=== PATIENT | female | born 1995 | race Two or more races ===

== ENCOUNTER → 2019-01-17 | Outpatient (CLI) | payer OTHER | LOC: OD 16:46 | PROVIDERS: ATTEND Obstetrics & Gynecology | DX: N92.0 Excessive and frequent menstruation with regular cycle (principal); Z32.01 Encounter for pregnancy test, result positive | CPT/HCPCS: 36415; 84702; 86900; 86901 ==

== ENCOUNTER → 2019-01-30 | Outpatient (CLI) | payer OTHER | LOC: OD 07:42 | PROVIDERS: ATTEND Obstetrics & Gynecology | DX: O20.0 Threatened abortion (principal) | CPT/HCPCS: 36415; 84702 ==

== ENCOUNTER 2020-01-19 12:15 | Inpatient (IN) | payer OTHER ==
[2020-01-26] MEDS ORDERED: RINGERS SOLUTION,LACTATED 1,000 ML IV ONE (21:30)
[2020-01-26 21:31] LABS: ABSOLUTE LYMPHOCYTES (AUTO) 1.1 10^3/uL (0.5-4.7); ABSOLUTE MONOCYTES (AUTO) 0.8 10^3/uL (0.1-1.4); ABSOLUTE NEUT (AUTO) 5.6 10^3/uL (1.7-8.2); BASOPHILS % (AUTO) 0.6 % (0-2); EOSINOPHILS % (AUTO) 0.5 % (0-6); HEMATOCRIT 31.3 % (36.0-47.0); HEMOGLOBIN 11.3 g/dL (12.0-15.5); MEAN CORPUSCULAR HEMOGLOBIN 34.1 pg (27.0-33.4); MEAN CORPUSCULAR HGB CONC 35.9 g/dL (32.0-36.0); MEAN CORPUSCULAR VOLUME 95 fl (80-97); MONOCYTES % (AUTO) 10.2 % (3-13); PLATELET COUNT 153 10^3/uL (150-450); RED BLOOD COUNT 3.31 10^6/uL (3.72-5.28); RED CELL DISTRIBUTION WIDTH 12.8 % (11.5-14.0); SEGMENTED NEUTROPHILS % (AUTO) 73.7 % (42-78); TOTAL CELLS COUNTED % (AUTO) 100 %; WHITE BLOOD COUNT 7.6 10^3/uL (4.0-10.5)
[2020-01-26] MEDS: RINGERS SOLUTION,LACTATED 1,000 ML IV PRN (21:40)
[2020-01-26 21:54] LABS: APPEARANCE,URINE CLEAR; BILIRUBIN,URINE NEGATIVE (NEGATIVE); COLOR,URINE YELLOW; GLUCOSE, URINE NEGATIVE (NEGATIVE); KETONES,URINE NEGATIVE (NEGATIVE); LEUKOCYTE ESTERASE,URINE NEGATIVE (NEGATIVE); NITRITE,URINE NEGATIVE (NEGATIVE); PROTEIN,URINE NEGATIVE (NEGATIVE); URINE SPECIFIC GRAVITY 1.005; UROBILINOGEN,URINE NEGATIVE mg/dL (<2.0)
[2020-01-26] MEDS ORDERED: DINOPROSTONE 10 MG VAGINAL INSERT.SR ONE (22:10)
[2020-01-26 22:14] LABS: URINE AMPHETAMINES SCREEN NEGATIVE; URINE BARBITURATES SCREEN NEGATIVE; URINE BENZODIAZEPINES SCREEN NEGATIVE; URINE COCAINE SCREEN NEGATIVE; URINE MARIJUANA (THC) SCREEN NEGATIVE; URINE METHADONE SCREEN NEGATIVE; URINE PHENCYCLIDINE SCREEN NEGATIVE
[2020-01-26] MEDS ORDERED: DINOPROSTONE 10 MG VAGINAL INSERT.SR PV PRN (22:35)
[2020-01-26] MEDS ORDERED: DINOPROSTONE 10 MG VAGINAL INSERT.SR PV ONE (23:00)
--- NOTE | 2020-01-27 03:29 | Admission Physical ---
Datetime Report Generated by CPN: 01/27/2020 03:29 CURRENT ADMISSION Chief Complaint: Other Indication for Induction: Post Dates Admit Impression : Term, Intrauterine Admit Plan: Admit to Unit; Initiate Labor Induction Protocol ALLERGIES Medication Allergies: No Medication Allergies: No Known Allergies (01/26/2020) Latex: No Latex Allergies OBSTETRICAL HISTORY EDC: 01/14/2020 00:00 : 2 Para: 0 Term: 0 : 0 SAB: 1 IAB: 0 Ectopic: 0 Livin Cesareans: 0 VBACs: 0 Multiple Births: 0 Gestational Diabetes: No Rh Sensitization: No Incompetent Cervix: No JONATAN: No Infertility: No ART Treatment: No Uterine Anomaly: No IUGR: No Hx Previous C/S: No Macrosomia: No Hx Loss/Stillborn: No PIH: No Hx : No Placenta Previa/Abruption: No Depression/PP Depression: No PTL/PROM: No Post Hemorrhage: No SEE RECORDS Alcohol: No Marijuana : No Cocaine: No Other Illicit Drugs: No Cigarettes: Never Smoker. [id number] MEDICAL HISTORY Diabetes: No Blood Transfusion: No Pulmonary Disease (Asthma, TB): No Breast Disease: No Hypertension: No Dental Services Director Surgery: No Heart Disease: No Hosp/Surgery: No Autoimmune Disorder: No Anesthetic Complications: No Kidney Disease: No Abnormal Pap Smear: No Neuro/Epilepsy: No Psychiatric Disorders: No Other Medical Diseases: No Hepatitis/Liver Disease: No Significant Family History: No Varicosities/Phlebitis: No Trauma/Violence : No Thyroid Dysfunction: No INFECTIOUS HISTORY Gonorrhea: No Genital Herpes: No Chlamydia: No Tuberculosis: No Syphilis: No Hepatitis: No HIV/AIDS Exposure: No Rash or Viral Illness: No HPV: No PHYSICAL EXAM General: Normal HEENT: Normal Neurologic: Normal Thyroid: Normal Heart: Normal Lungs: Normal Breast: Deferred Back: Normal Abdomen: Normal Genitourinary Exam: Normal Extremities: Normal DTRs: Normal Pelvic Type: Adequate FETUS A EGA: 41.6 PLANS FOR LABOR AND DELIVERY Labor and Delivery: None Pain Management: Epidural Feeding Preference: Breast Benefit of Breast Feed Discussed: Yes Circumcision: N/A INFORMED CONSENT Signature: with User ID: [email or web address]
[2020-01-27] MEDS: RINGERS SOLUTION,LACTATED 1,000 ML IV PRN ×2 (03:46→22:55)
[2020-01-27] MEDS ORDERED: MISOPROSTOL 0.2 MG TABLET ONE (10:05)
[2020-01-27] MEDS ORDERED: OXYTOCIN/0.9 % SODIUM CHLORIDE 30 UNIT/500 ML RTUINJ ONE (10:05)
[2020-01-27] MEDS ORDERED: LIDOCAINE 1% INJ-PF (10 MG/ML) 30 ML SDV ONE (10:05)
[2020-01-27] MEDS ORDERED: OXYTOCIN 10 UNIT/ML VIAL ONE (10:05)
--- NOTE | 2020-01-27 11:12 | L&D Progress Notes ---
PROGRESS NOTES Datetime Report Generated by CPN: 01/27/2020 11:12 PROGRESS NOTE Impression: Reassuring Heart Rate Procedures: Artificial ROM; Sterile Vag Exam Plan: Continue Present Management; Induction Vital Signs : Reviewed; Within Normal Limits Comment: IOL at 41.6 wks. s/p Cervidil overnight. Pt having contractions, remains comfortable, desires epidural when in active labor. GBS negative. VE 1-2/70/-1. AROM w/ moderate amount of clear amniotic fluid. Position changes and ambulation encouraged. Attending MD is Dr Bermudez today VAGINAL EXAM Contractions: q2 LAST VAGINAL EXAM-NURSING Nursing Exam Dilitation: 1-2 Nursing Exam Effacement: 70 Nursing Exam Station: -1 Nursing Exam Contractions: pt denies feeling cramping or ctx MEMBRANES Membranes: Ruptured Amniotic Fluid Color: Clear FETUS A FHR - Baseline: 145 Monitoring: External US Variability: Moderate 6-25bpm Accelerations: 15X15 Decelerations: None SIGNATURE SIGNATURE: [id number];[id number] Assignment: Era Bermudez MD Signature: with User ID: Christi : with User ID: [email or web address]
[2020-01-27] MEDS ORDERED: OXYTOCIN/0.9 % SODIUM CHLORIDE 30 UNIT/500 ML RTUINJ IV PRN (15:21)
--- NOTE | 2020-01-27 15:26 | L&D Progress Notes ---
PROGRESS NOTES Datetime Report Generated by CPN: 01/27/2020 15:26 PROGRESS NOTE Impression: Reassuring Heart Rate Procedures: Sterile Vag Exam Plan: Continue Present Management; Augmentation Vital Signs : Reviewed; Within Normal Limits Comment: IOL, s/p AROM, pt has been ambulating and sitting on the birthing ball. Remains comfortable. VE, no change, 1-/-1. Will Augment w/ Pitocin. Pt does plan an epidural when she gets uncomfortable. GBS negative. Attending MD is Dr Bermudez VAGINAL EXAM Dilatation: 1-2 Effacement: 70 Station: -1 Contractions: q2-4 LAST VAGINAL EXAM-NURSING Nursing Exam Dilitation: 1-2 Nursing Exam Effacement: 70 Nursing Exam Station: -1 Nursing Exam Contractions: pt denies feeling cramping or ctx MEMBRANES Membranes: Ruptured Amniotic Fluid Color: Clear FETUS A FHR - Baseline: 140 Monitoring: External US Variability: Moderate 6-25bpm Accelerations: 15X15 Decelerations: None SIGNATURE SIGNATURE: [id number] Assignment: Era Bermudez MD Signature: with User ID: Christi : with User ID: [email or web address]
[2020-01-27] MEDS ORDERED: NALBUPHINE HCL INJ 10 MG/1 ML AMPULE INJ ONE (18:45)
[2020-01-27] MEDS ORDERED: PROMETHAZINE HCL INJ 25 MG/1 ML VIAL IV ONE (18:45)
[2020-01-27] MEDS ORDERED: NALBUPHINE HCL INJ 10 MG/1 ML AMPULE ONE (18:50)
[2020-01-27] MEDS ORDERED: PROMETHAZINE HCL INJ 25 MG/1 ML VIAL ONE (18:50)
[2020-01-27 20:12] LABS: ABSOLUTE MONOCYTES (AUTO) 0.9 10^3/uL (0.1-1.4); ABSOLUTE NEUT (AUTO) 8.8 10^3/uL (1.7-8.2); BASOPHILS % (AUTO) 0.4 % (0-2); EOSINOPHILS % (AUTO) 0.2 % (0-6); HEMATOCRIT 30.8 % (36.0-47.0); LYMPHOCYTES % (AUTO) 9.1 % (13-45); MEAN CORPUSCULAR HEMOGLOBIN 33.8 pg (27.0-33.4); MEAN CORPUSCULAR HGB CONC 35.7 g/dL (32.0-36.0); MEAN CORPUSCULAR VOLUME 95 fl (80-97); MONOCYTES % (AUTO) 8.2 % (3-13); PLATELET COUNT 150 10^3/uL (150-450); RED BLOOD COUNT 3.25 10^6/uL (3.72-5.28); RED CELL DISTRIBUTION WIDTH 12.7 % (11.5-14.0); SEGMENTED NEUTROPHILS % (AUTO) 82.1 % (42-78); TOTAL CELLS COUNTED % (AUTO) 100 %; WHITE BLOOD COUNT 10.7 10^3/uL (4.0-10.5)
[2020-01-27 20:37] LABS: ALBUMIN 2.7 g/dL (3.5-5.0); ALKALINE PHOSPHATASE 229 U/L (38-126); ASPARTATE AMINO TRANSFERASE 27 U/L (14-36); BILIRUBIN,DIRECT 0.2 mg/dL (0.0-0.4); BILIRUBIN,TOTAL 0.7 mg/dL (0.2-1.3); BLOOD UREA NITROGEN 7 mg/dL (7-20); CALCIUM 8.5 mg/dL (8.4-10.2); GLUCOSE 83 mg/dL (75-110); TOTAL PROTEIN 5.2 g/dL (6.3-8.2); URIC ACID 4.9 mg/dL (2.5-6.2)
[2020-01-27 20:42] LABS: CARBON DIOXIDE 22 mmol/L (22-30); CHLORIDE 109 mmol/L (98-107)
[2020-01-27 20:59] LABS: ANION GAP 4 (5-19)
[2020-01-27] MEDS ORDERED: PENICILLIN G-K 5 MILLION UNIT VIAL ONE (22:39)
[2020-01-27] MEDS ORDERED: PENICILLIN G POTASSIUM 5,000,000 UNIT in DEXTROSE 5%-WATER 100 ML IV ONE (23:00)
[2020-01-28] MEDS ORDERED: PENICILLIN G-K 5 MILLION UNIT VIAL ONE ×2 (03:20→07:48)
[2020-01-28] MEDS: PENICILLIN G POTASSIUM 2,500,000 UNIT in DEXTROSE 5%-WATER 50 ML IV SCH ×5 (03:24→18:26)
[2020-01-28] MEDS ORDERED: NALBUPHINE HCL INJ 10 MG/1 ML AMPULE INJ ONE (03:37)
[2020-01-28] MEDS ORDERED: PROMETHAZINE HCL INJ 25 MG/1 ML VIAL IV ONE (03:37)
[2020-01-28] MEDS ORDERED: NALBUPHINE HCL INJ 10 MG/1 ML AMPULE ONE (03:49)
[2020-01-28] MEDS ORDERED: PROMETHAZINE HCL INJ 25 MG/1 ML VIAL ONE (03:49)
[2020-01-28] MEDS ORDERED: OXYTOCIN/0.9 % SODIUM CHLORIDE 30 UNIT/500 ML RTUINJ IV PRN ×2 (08:53→20:31)
[2020-01-28] MEDS ORDERED: OXYTOCIN/0.9 % SODIUM CHLORIDE 30 UNIT/500 ML RTUINJ ONE ×2 (08:58→20:42)
--- NOTE | 2020-01-28 09:41 | L&D Progress Notes ---
PROGRESS NOTES Datetime Report Generated by CPN: 01/28/2020 09:41 PROGRESS NOTE Impression: Reassuring Heart Rate Impression Other: IUP @ 42wga IOL day 2 Procedures: Intrauterine Pressure Catheter; Scalp Electrode Plan: Continue Present Management; Induction Informed Consent Obtained: Vaginal Delivery; Section Delivery; Induction of Labor; Risks, Benefits and Alternatives Discussed Vital Signs : Reviewed Vital Signs Comments: normal-mild range Comment: S: pt comfortable after pitocin break, new IV placed started, eager for vaginal delivery,no concerns at this time, agreeable to IUPC and FSE placement O: mild range bps, monitors had been off when I came onboard, IV and induction re-started at this time, Cat I tracing, cervix as stated A: IUP @ 42w IOL day 2 AROM 22hrs ago with minimal change overnight-stable IUPC and FSE placed without difficulty pt tolerated well P: re-start IOL at this time will increase pitocin q15min, titrate to adequate MVUs, re-assess in 4hrs or earlier prn. Dr. Garcia is the OB on today and aware of pt and poc VAGINAL EXAM Dilatation: 3 Effacement: 90 Station: -2 Contractions: rare LAST VAGINAL EXAM-NURSING Nursing Exam Dilitation: 2.0 Nursing Exam Effacement: 80 Nursing Exam Station: -1 Nursing Exam Contractions: KODY malfunctioning MEMBRANES Membranes: Ruptured Amniotic Fluid Color: Bloody FETUS A FHR - Baseline: 130 Monitoring: External US Variability: Moderate 6-25bpm Accelerations: 15X15 Decelerations: None SIGNATURE SIGNATURE: [id number];[id number] Assignment: Brayden Garcia MD Signature: with User ID: [email or web address] : with User ID: [email or web address]
[2020-01-28] MEDS: RINGERS SOLUTION,LACTATED 1,000 ML IV PRN ×2 (10:50→12:41)
[2020-01-28] MEDS ORDERED: FENTANYL/BUPIVACAINE/NS/PF 300 MCG/150 ML RTUINJ EPI ONE (12:23)
[2020-01-28] MEDS ORDERED: ROPIVACAINE HCL 0.2% INJ/PF (2 MG/ML) 20 ML SDV ONE (12:23)
[2020-01-28] MEDS ORDERED: EPHEDRINE SULFATE INJ 50 MG/1 ML AMPULE ONE (12:23)
[2020-01-28] MEDS ORDERED: DEXTROSE 5%-LACTATED RINGERS 1,000 ML IV PRN (14:53)
[2020-01-28] MEDS ORDERED: DEXTROSE 5%-WATER 250 ML IV ONE (14:53)
[2020-01-28] MEDS ORDERED: CEFAZOLIN 2 GM/D5W RTU 2 GM/50 ML RTUPB IV ONE (20:14)
[2020-01-28] MEDS ORDERED: CITRIC ACID/SODIUM CITRATE ORAL SOLN 15 ML UDCUP ONE (20:14)
--- NOTE | 2020-01-28 20:29 | L&D Progress Notes ---
PROGRESS NOTES Datetime Report Generated by CPN: 01/28/2020 20:29 PROGRESS NOTE Impression: Arrest of Dilatation/Descent; Rupture of Membranes Impression Other: IUP @ 42wga IOL day 2 Procedures: Artificial ROM; Intrauterine Pressure Catheter; Scalp Electrode; Epidural Placement Plan: Deliver- Section Informed Consent Obtained: Section Delivery Vital Signs : Reviewed Vital Signs Comments: normal-mild range Comment: The pt is not progressing in labor. She has been ruptured greater than 24 hours. The head is not descending well in the pelvis. We will go ahead with delivery by c section. The pt and family agree with this plan. VAGINAL EXAM Dilatation: 3 Effacement: 90 Station: -2 Contractions: rare LAST VAGINAL EXAM-NURSING Nursing Exam Dilitation: 5.0 Nursing Exam Effacement: 100 Nursing Exam Station: -1 Nursing Exam Contractions: MVUs- 80 MEMBRANES Membranes: Ruptured Amniotic Fluid Color: Bloody FETUS A FHR - Baseline: 130 Monitoring: External US Variability: Moderate 6-25bpm Accelerations: 15X15 Decelerations: None SIGNATURE SIGNATURE: [id number];[id number] Assignment: Brayden Garcia MD Signature: with User ID: Alexandria : with User ID: Alexandria
[2020-01-28] MEDS ORDERED: MEASLES,MUMPS&RUBELLA VACC/PF 0.5 ML VIAL SUBCUT PRN (20:31)
[2020-01-28] MEDS ORDERED: SIMETHICONE 80 MG TAB.CHEW PO PRN (20:31)
[2020-01-28] MEDS ORDERED: DIPH/PERTUSS(ACELL)/TETANUS VAC/PF 0.5 ML SYR (>=10YO) IM PRN (20:31)
[2020-01-28] MEDS ORDERED: HYDROMORPHONE HCL INJ/PF 2 MG/ML AMPULE IV PRN (20:31)
[2020-01-28] MEDS ORDERED: OXYCODONE-ACETAMINOPHEN 5-325 MG TABLET PO PRN ×2 (20:31)
[2020-01-28] MEDS ORDERED: ACETAMINOPHEN 1,000 MG/100 ML RTUPB IV PRN (20:31)
[2020-01-28] MEDS ORDERED: PROMETHAZINE HCL INJ 25 MG/1 ML VIAL IV PRN (20:31)
[2020-01-28] MEDS ORDERED: RINGERS SOLUTION,LACTATED 1,000 ML IV PRN (20:31)
[2020-01-28] MEDS ORDERED: ACETAMINOPHEN 325 MG TABLET PO PRN (20:31)
[2020-01-28] MEDS ORDERED: FENTANYL CITRATE INJ/PF 100 MCG/2 ML AMPUL ONE ×3 (20:42→21:35)
[2020-01-28] MEDS ORDERED: OXYTOCIN 10 UNIT/ML VIAL ONE ×2 (20:42→21:20)
[2020-01-28] MEDS ORDERED: LIDOCAINE 2% INJ-PF (20 MG/ML) 10 ML AMPUL ONE ×2 (20:42→21:43)
[2020-01-28] MEDS ORDERED: ACETAMINOPHEN 1,000 MG/100 ML RTUPB IV ONE (20:43)
[2020-01-28] MEDS ORDERED: ONDANSETRON HCL INJ/PF 4 MG/2 ML SDV ONE (20:43)
--- NOTE | 2020-01-28 22:02 | Operative Report ---
Operative Report DATE OF SURGERY: 01/28/20 PREOPERATIVE DIAGNOSIS: Arrest of dilatation with prolonged rupture membranes POSTOPERATIVE DIAGNOSIS: Same OPERATION: Primary via low transverse uterine incision SURGEON: TONIO TY ANESTHESIA: Epidural TISSUE REMOVED OR ALTERED: Placenta COMPLICATIONS: Uterine atony ESTIMATED BLOOD LOSS: 800 cc INTRAOPERATIVE FINDINGS: Viable crying at delivery. Normal uterus tubes and ovaries PROCEDURE: Patient was taken to the OR and placed in supine position after her spinal anesthesia. She is prepared and draped in sterile fashion. Lopez was placed for drainage of the bladder. Low transverse incision was made and carried down the level of the fascia. The fascial incision was made with knife and extended bilaterally with curved [place] scissors. The fascia was off the rectus muscles using sharp and blunt dissection. The rectus muscles are in the midline. The peritoneum was entered without incident. Bladder blade was placed in uterine segment was identified. The patient's tissue looked very edematous at this point. A low transverse incision was made creating a bladder flap. Bladder blade was placed low transverse uterine incision was made with the knife and extended with fingertips. The baby was delivered with some fundal pressure. Mouth and nose were suctioned free. The cord is doubly clamped and cut. Baby is passed off to the organic extractions technician in attendance. The placenta was manually extracted with trailing membranes. The uterus was externalized wrapped in a moist lap sponge. Uterine contents wiped free. A bleeding vessel at the right side of the incision was clamped. The bleeding vessel was tied off with 2 interrupted 0 chromic sutures. Uterus was closed with a running locking layer of 0 chromic suture using the second layer to imbricate the first completing a double layer closure of the uterus. The serosa was closed with a running 2-0 chromic stitch. During the closure of the uterus the uterus was not ana well and Pitocin was injected directly into the uterine myometrium. There was a small hematoma forming at the right side of the incision and an [place] suture was placed above and below the hematoma site which seemed to control the bleeding well. The suture was placed was a 0 chromic, The pelvis was irrigated and suctioned free of fluid the uterus was replaced in the abdomen. The abdominal wall peritoneum was closed with running 2-0 chromic stitch. Fascia was closed with a running 0 Vicryl in 2 segments. Rosario's layer was brought together with 0 plain gut stitch and the skin was closed with running subcuticular 4-0 undyed Vicryl stitch. The wound was dressed mother and baby did well. We will check a CBC in the PACU because of the blood loss during the case.
[2020-01-28 22:33] LABS: HEMATOCRIT 26.6 % (36.0-47.0); MEAN CORPUSCULAR HEMOGLOBIN 32.8 pg (27.0-33.4); MEAN CORPUSCULAR VOLUME 96 fl (80-97); PLATELET COUNT 132 10^3/uL (150-450); RED BLOOD COUNT 2.76 10^6/uL (3.72-5.28); RED CELL DISTRIBUTION WIDTH 12.7 % (11.5-14.0); WHITE BLOOD COUNT 15.3 10^3/uL (4.0-10.5)
[2020-01-28 22:40] LABS: INTERNATIONAL RATION (INR) 1.09; PROTHROMBIN TIME 14.3 SEC (11.4-15.4)
[2020-01-28 22:41] LABS: PARTIAL THROMBOPLASTIN TIME 35.9 SEC (23.5-35.8)
[2020-01-28] MEDS ORDERED: MISOPROSTOL 0.2 MG TABLET ONE (22:51)
[2020-01-28] MEDS ORDERED: METHYLERGONOVINE MALEATE INJ/PF 0.2 MG/1 ML AMPULE ONE ×2 (23:42→23:48)
[2020-01-28] MEDS ORDERED: NORMAL SALINE 250 ML IV PRN ×2 (23:50)
[2020-01-28] MEDS ORDERED: MORPHINE SULFATE 10 MG/ML INJ ONE (23:54)
[2020-01-29] MEDS ORDERED: CARBOPROST TROMETHAMINE INJ 250 MCG/1 ML AMPULE ONE (00:23)
[2020-01-29] MEDS ORDERED: METHYLERGONOVINE MALEATE INJ/PF 0.2 MG/1 ML AMPULE IM ONE (00:30)
[2020-01-29] MEDS ORDERED: CARBOPROST TROMETHAMINE INJ 250 MCG/1 ML AMPULE IM ONE (00:35)
[2020-01-29] MEDS ORDERED: LOPERAMIDE HCL 2 MG CAPSULE ONE (01:38)
--- NOTE | 2020-01-29 01:39 | Birth Certificate Data ---
Cert Data Datetime Report Generated by [employer]: 01/29/2020 01:38 CERTIFICATE DATA 47a. Care: Yes (01/26/2020 17:28:Rebekah Wise RN) 47b. Date of First Visit: 07/01/2019 00:00 (01/26/2020 17:28:Rebekah Wise RN) 47c. Date of Last Visit: 01/16/2020 00:00 (01/26/2020 17:28:Rebekah Wise RN) 47d. Number of Visits: 13 (01/26/2020 17:28:Rebekah Wise RN) 48a. Number of Prev Live Births: 0 (01/26/2020 17:28:Rebekah Wise RN) 48b. Now Livin (01/26/2020 17:28:Rebekah Wise RN) 48c. Live Births Now : 0 (01/26/2020 17:28:QS system process) 48e. Losses: 1 (01/26/2020 17:28:Rebekah Wise RN) 48f. Date of Last Preg Loss: 01/19/2019 00:00 (01/26/2020 17:28:Rebekah Wise RN) RISK FACTORS IN THIS 49a. Diabetes: No (01/26/2020 17:28:Ramesh White RN) 49b. Hypertension: No (01/26/2020 17:28:Ramesh White RN) 49c. Previous Births: 0 (01/26/2020 17:28:Ramesh White RN) 49d. Stillborns: No (01/26/2020 17:28:Ramesh White RN) 49d. IUGR: No (01/26/2020 17:28:Ramesh White RN) 49e. Infertility Treatment: No (01/26/2020 17:28:Ramesh White RN) 49f. Previous Cesareans: 0 (01/26/2020 17:28:Ramesh White RN) Mother's Height 50b. Height Inches: 63 (01/27/2020 10:10:QS system process) Mother's Weight 51a. Pre- Weight (lbs): 128 (01/26/2020 17:28:Rebekah Wise RN) 51b. Weight at Delivery (lbs): 176 (01/27/2020 10:10:QS system process) 52. Dt Last Normal Menses Began: 04/09/2019 00:00 (01/26/2020 17:28:Rebekah Wise RN) Infections Present/Treated 53a. Gonorrhea: No (01/26/2020 17:28:Ramesh White RN) Results this Hospital Visit : Negative (01/26/2020 17:28:Rebekah Wise RN) 53b. Syphilis: No (01/26/2020 17:28:Ramesh White RN) Results this Hospital Visit: NONREACTIVE (01/26/2020 21:21:QS system process) 53c. Chlamydia: No (01/26/2020 17:28:Ramesh White RN) Results this Hospital Visit: Negative (01/26/2020 17:28:Rebekah Wise RN) 53d. Hepatitis B: No (01/26/2020 17:28:Ramesh White RN) Results this Hospital Visit: Negative (01/26/2020 17:28:Rebekah Wise RN) 53h. Mother Tested for HBsAG: Yes (01/26/2020 17:28:Rebekah Wise RN) 53i. Date Tested: 07/01/2019 00:00 (01/26/2020 17:28:Rebekah Wise RN) 53j. Test Result: Negative (01/26/2020 17:28:Rebekah Wise RN) Obstetric Procedures 54a, b, c. Obstetric Procedures: Ultrasound (01/26/2020 17:28:Ramesh White RN) Onset of Labor 56a. PROM >12 Hrs: 34.13 (01/26/2020 17:28:QS system process) 57a. Induction of Labor: Induction (01/26/2020 17:28:Mallory Argueta RN) 57a. Induction of Labor: Cervidil (01/26/2020 22:30:Ramesh White RN) 57c. Non-Vertex Presentation A: Vertex (01/26/2020 17:28:Mallory Argueta RN) 57d. Steroids - Lung Mat: None (01/26/2020 17:28:Rebekah Wise RN) 57d. Steroids - Lung Mat: Not Applicable (01/26/2020 17:28:Rebekah Wise RN) 57e. Antibiotics During Labor: 01/28/2020 12:35 (01/26/2020 17:28:Mallory Argueta RN) 57f. Mat Ch[place] or Temp >100.4: 99.1 (01/26/2020 17:28:Lyric Ward RN) 57g. Moderate/Heavy Meconium: Clear (01/27/2020 11:05:Rebekah Wise RN) 57h. Intolerance of Labor: Arrest of Descent (01/26/2020 17:28:Mallory Argueta RN) : N/A (01/26/2020 17:28:Mallory Argueta RN) 57i. Epidural/Spinal Anesthesia: Epidural (01/26/2020 17:28:Mallory Argueta RN) Method of Delivery 58a. Forceps - Unsuccessful A: N/A (01/26/2020 17:28:Mallory Argueta RN) 58b. Vacuum - Unsuccessful A: N/A (01/26/2020 17:28:Mallory Argueta RN) 58c. Presentation at 58c. Presentation at - A : Vertex (01/26/2020 17:28:Mallory Argueta RN) 58c. Presentation at - A : N/A (01/26/2020 17:28:Mallory Argueta RN) 58c. Presentation at - A : Cephalic (01/26/2020 17:28:Mallory Argueta RN) Final Route and Method of Del 58d. Baby A Route/Delivery: (01/26/2020 17:28:Mallory Argueta RN) 58e. Trial of Labor Attempted: No (01/26/2020 17:28:Rebekah Wise RN) 58e. Trial of Labor Attempted A: N/A (01/26/2020 17:28:Rebekah Vining, RN) 58e. Trial of Labor Attempted B: N/A (01/26/2020 17:28:Rebekah Wise, RN) Maternal Morbidity 59b. 3rd or 4th Degree Lacs: N/A (01/26/2020 17:28:Mallorymary Argueta RN) Birthweight Baby A: 4740 (01/26/2020 17:28:Sweetie Yury RN) 60a. Pounds : 10 (01/26/2020 17:28:QS system process) 60b. Ounces: 7 (01/26/2020 17:28:QS system process) 61. GA at Delivery Baby A: 42.0 (01/26/2020 17:28:Mallory Argueta RN) : Post Term- >= 42 Weeks (01/26/2020 17:28:QS system process) 62a. 5 Minute Baby A: 9 (01/26/2020 17:28:QS system process)
--- NOTE | 2020-01-29 01:40 | Delivery Summary ---
Del Sum A-C Datetime Report Generated by CPN: 01/29/2020 01:39 DELIVERY PERSONNEL DELIVERY PERSONNEL: [id number] Delivery Doctor:: Brayden Garcia MD Labor and Delivery Nurse:: Mallory Argueta RN Nursery Nurse:: Sweetie Cotton RN Associate Broker/CYTOGENETICIST: Daria Nuñez, Associate Broker/CYTOGENETICIST: Grace Walton CST Additional Personnel: : Nery Mitchell RELAY SHOP TESTER MATERNAL INFORMATION Delivery Anesthesia: Epidural Medications After Delivery: Pitocin 30 Units in 500ml NS/D5W; Methergine 0.2mg IM; Cytotec 1000mcg Per Rectum/Vagina; Other-Please Comment Meds After Delivery Comment: hemabate 250mg IM Delivery QBL: 1766 Maternal Complications: Hemorrhage LABOR SUMMARY EDC: 01/14/2020 00:00 No. Babies in Womb: 1 Attempted: No Labor Anesthesia: Epidural LABOR INFORMATION Reason for Induction: Post Dates Cervical Ripening Agents: Cervidil Oxytocin: Induction Group B Beta Strep: negative Antibiotics # of Doses: 4 Antibiotics Time of Last Dose: 01/28/2020 12:35 Name of Antibiotic Given: penicillin G Steroids Given: None Reason Steroids Not Administered: Not Applicable MEMBRANES Membranes Rupture Method: Artificial Rupture of Membranes: 01/27/2020 11:05 Length of Rupture (hr): 34.13 Amniotic Fluid Color: Clear Amniotic Fluid Amount: Moderate Amniotic Fluid Odor: Normal STAGES OF LABOR Stage 3 hr: 0 Stage 3 min: 1 VAGINAL DELIVERY Laceration Extension #1: N/A Laceration Repair: Not Applicable Sponge Count Correct: N/A CSECTION DELIVERY Primary Indication: Arrest of Descent Secondary Indication: N/A CSection Urgency: Non-Scheduled CSection Incidence: Primary Labor: Labor Elective: Nonelective CSection Incision: Lower Uterine Transverse BABY A INFORMATION Infant Delivery Date/Time: 01/28/2020 21:13 Method of Delivery: Nurse Controlled Delivery: No Born in Route : No : N/A Forceps: N/A Vacuum Extraction: N/A Shoulder Dystocia : No PRESENTATION/POSITION BABY A Presentation: Cephalic Cephalic Presentation: Vertex Breech Presentation: N/A PLACENTA INFORMATION BABY A Placenta Delivery Time : 01/28/2020 21:14 Placenta Method of Delivery: Manual Removal Placenta Status: Delivered SCORES BABY A Heart Rate 1 min: >100 bpm Resp Effort 1 min: Good Cry Reflex Irritability 1 min: Cough or Sneeze or Pulls Away Muscle Tone 1 min: Active Motion Color 1 min: Blue/Pale Resuscitation Effort 1 min: Tactile Stimulation SCORE 1 MIN: 8 Heart Rate 5 min: >100 bpm Resp Effort 5 min: Good Cry Reflex Irritability 5 min: Cough or Sneeze or Pulls Away Muscle Tone 5 min: Active Motion Color 5 min: Body [place], Extremities Blue Resuscitation Effort 5 min: N/A SCORE 5 MIN: 9 INFORMATION BABY A Gestational Age at Delivery: 42.0 Gestational Status: Post Term- >= 42 Weeks Infant Outcome : Liveborn Condition : Stable Sex: Female IDENTIFICATION BABY A Verification Date/Time: 01/28/2020 22:10 ID Band Number: [id number] Mother's Name Verified: Yes Infant RN Verifying Infant: Cristóbal Argueta, RN and L. Cotton, RN WEIGHT/LENGTH BABY A Infant Birthweight (gm): 4740 Infant Weight (lb): 10 Infant Weight (oz): 7 Length (in): 20.50 Length (cm): 52.07 CORD INFORMATION BABY A No. Cord Vessels: 3 Nuchal Cord : Around Neck x1, Loose Cord Blood Taken: Yes-For Eval (Mom's Blood Type - or O+) Infant Suction: Mouth ASSESSMENT BABY A Infant Complications: None Physical Findings at Delivery: Other Physical Findings- Other: see initial nursery assessment Respirations: Appears Normal Skin to Skin: Yes Infant Care By: Prasanna Cotton RN Transferred To: [facility] BABY B INFORMATION : N/A
[2020-01-29] MEDS ORDERED: LOPERAMIDE HCL 2 MG CAPSULE PO ONE (01:50)
--- NOTE | 2020-01-29 04:04 | L&D Progress Notes ---
PROGRESS NOTES Datetime Report Generated by CPN: 01/29/2020 04:04 PROGRESS NOTE Impression: Arrest of Dilatation/Descent; Rupture of Membranes Impression Other: IUP @ 42wga IOL day 2 Procedures: Artificial ROM; Intrauterine Pressure Catheter; Scalp Electrode; Epidural Placement Plan: Deliver- Section Informed Consent Obtained: Section Delivery Vital Signs : Reviewed Vital Signs Comments: normal-mild range Comment: Due to the QBL with the uterine atony and c section we are currently transfusing blood. Pulse is in 70s, blood pressure 130/70. Will repeat the cbc after transfusion. VAGINAL EXAM Dilatation: 3 Effacement: 90 Station: -2 Contractions: rare LAST VAGINAL EXAM-NURSING Nursing Exam Dilitation: 5.0 Nursing Exam Effacement: 100 Nursing Exam Station: -1 Nursing Exam Contractions: MVUs- 80 MEMBRANES Membranes: Ruptured Amniotic Fluid Color: Bloody FETUS A FHR - Baseline: 130 Monitoring: External US Variability: Moderate 6-25bpm Accelerations: 15X15 Decelerations: None SIGNATURE SIGNATURE: [id number];[id number];15,[id number];29,[id number] Assignment: Brayden Garcia MD Signature: with User ID: Alexandria : with User ID: Alexandria
[2020-01-29] MEDS ORDERED: CEFAZOLIN 1 GM/D5W RTU 1 GM/50 ML RTUPB IV SCH (06:00)
[2020-01-29 06:36] LABS: HEMATOCRIT 29.9 % (36.0-47.0); HEMOGLOBIN 10.5 g/dL (12.0-15.5); MEAN CORPUSCULAR HEMOGLOBIN 31.5 pg (27.0-33.4); MEAN CORPUSCULAR HGB CONC 35.2 g/dL (32.0-36.0); PLATELET COUNT 112 10^3/uL (150-450); RED BLOOD COUNT 3.33 10^6/uL (3.72-5.28); RED CELL DISTRIBUTION WIDTH 15.3 % (11.5-14.0)
[2020-01-29 06:39] LABS: MEAN CORPUSCULAR VOLUME 90 fl (80-97)
[2020-01-29] MEDS: KETOROLAC TROMETHAMINE INJ/PF 30 MG/1 ML SDV IV SCH ×3 (08:42→15:00)
[2020-01-29] MEDS: PENICILLIN G POTASSIUM 2,500,000 UNIT in DEXTROSE 5%-WATER 50 ML IV SCH (10:20)
[2020-01-29] MEDS: PRENATAL VITAMIN W DHA CAPSULE PO SCH (10:34)
[2020-01-29] MEDS: DOCUSATE SODIUM 100 MG CAPSULE PO SCH ×2 (10:34→18:20)
--- NOTE | 2020-01-29 10:37 | PDOC PROGRESS REPORT ---
Subjective-OB Progress Note for:: 01/29/20 Subjective: reports bleeding slowing, pain controlled with current meds. denies needs Physical Exam (OB) Vital Signs: Temp Pulse Resp BP Pulse Ox 99.2 F 84 17 122/71 100 01/29/20 08:55 01/29/20 08:55 01/29/20 08:55 01/29/20 08:55 01/29/20 08:55 Intake & Output 01/28/20 01/29/20 01/30/20 06:59 06:59 06:59 Intake Total 1999 831 Balance 1999 831 - Dressing Removed: No Incision: Well Approximated - Maternal Morbidity 59. Maternal Morbidity (serious complications experinced by the mother associated with labor and delivery: Maternal transfusion - Abdomen Description: Tender Fundal Description: Firm, Midline Fundal Height: 1/u - 2/u - firm - Abdominal Distension: No distension - Extremities Lower extremities: Kati's sign - neg Calf: Normal, Nontender Objective-Diagnostic Laboratory: 01/29/20 06:19 01/27/20 19:55 01/26/20 01/28/20 01/29/20 21:21 22:20 06:19 WBC 15.3 H 15.0 H RBC 2.76 L 3.33 L Hgb 9.0 L 10.5 L Hct 26.6 L 29.9 L MCV 96 90 D MCH 32.8 31.5 MCHC 34.0 35.2 RDW 12.7 15.3 H Plt Count 132 L 112 L Blood Type O POSITIVE Antibody Screen NEGATIVE Assessment and Plan(PN) - Time Spent with Patient Time with patient: Less than 15 minutes - Disposition Anticipated Discharge Disposition: Home, Self Care Anticipated Discharge Timeframe: within 48 hours
[2020-01-30] MEDS: IBUPROFEN 800 MG TABLET PO SCH ×5 (00:03→23:59)
[2020-01-30 06:32] LABS: HEMATOCRIT 24.9 % (36.0-47.0); HEMOGLOBIN 8.6 g/dL (12.0-15.5); MEAN CORPUSCULAR HEMOGLOBIN 31.3 pg (27.0-33.4); MEAN CORPUSCULAR HGB CONC 34.6 g/dL (32.0-36.0); MEAN CORPUSCULAR VOLUME 90 fl (80-97); PLATELET COUNT 124 10^3/uL (150-450); RED BLOOD COUNT 2.75 10^6/uL (3.72-5.28); RED CELL DISTRIBUTION WIDTH 15.8 % (11.5-14.0); WHITE BLOOD COUNT 12.5 10^3/uL (4.0-10.5)
[2020-01-30] MEDS: DOCUSATE SODIUM 100 MG CAPSULE PO SCH ×2 (09:50→17:22)
[2020-01-30] MEDS: PRENATAL VITAMIN W DHA CAPSULE PO SCH (09:50)
[2020-01-30] MEDS ORDERED: IRON SUCROSE COMPLEX INJ/PF 100 MG/5 ML SDV IV ONE (11:51)
--- NOTE | 2020-01-30 11:55 | PDOC PROGRESS REPORT ---
Subjective-OB Progress Note for:: 01/30/20 Subjective: Pt doing well, no concerns. She is on reg diet, voiding w/o difficulty and passing gas. Baby will be going home tomorrow. Physical Exam (OB) Vital Signs: Temp Pulse Resp BP Pulse Ox 98.4 F 105 H 18 126/82 H 98 01/30/20 10:00 01/29/20 23:30 01/29/20 23:30 01/29/20 23:30 01/29/20 23:30 Intake & Output 01/29/20 01/30/20 01/31/20 06:59 06:59 06:59 Intake Total 831 140 Output Total 700 Balance 831 -560 - Dressing Removed: Yes - opsite Incision: Dressing - Maternal Morbidity 59. Maternal Morbidity (serious complications experinced by the mother associa andrey with labor and delivery: Maternal transfusion - Lochia Lochia Amount: Scant < 10 ml Lochia Color: Rubra/Red - Abdomen Description: Soft, Round Hernia Present: No Fundal Description: Firm, Midline Fundal Height: u/u - u/2 Objective-Diagnostic Laboratory: 01/30/20 06:19 01/27/20 19:55 01/30/20 06:19 WBC 12.5 H RBC 2.75 L Hgb 8.6 L Hct 24.9 L MCV 90 MCH 31.3 MCHC 34.6 RDW 15.8 H Plt Count 124 L Assessment and Plan(PN) - Assessment and Plan (1) Acute blood loss anemia Is this a current diagnosis for this admission?: Yes (2) hemorrhage Qualifiers: hemorrhage type: third-stage Qualified Code(s): O72.0 - Third- stage hemorrhage Is this a current diagnosis for this admission?: Yes (3) Blood transfusion during current hospitalisation Is this a current diagnosis for this admission?: Yes (4) Encounter for induction of labor Is this a current diagnosis for this admission?: Yes (5) Macrosomia Is this a current diagnosis for this admission?: Yes (6) Post term at 42 weeks gestation Is this a current diagnosis for this admission?: Yes (7) S/P primary low transverse Is this a current diagnosis for this admission?: Yes - Time Spent with Patient Time with patient: Less than 15 minutes Medications reviewed and adjusted accordingly: Yes - Disposition Anticipated Discharge Disposition: Home, Self Care Anticipated Discharge Timeframe: within 24 hours
[2020-01-31] MEDS: IBUPROFEN 800 MG TABLET PO SCH ×4 (05:38→23:19)
--- NOTE | 2020-01-31 09:45 | PDOC DISCHARGE SUMMARY ---
Impression - Admit/DC Date/PCP Admission Date/Primary Care Provider: 01/26/20 20:39 DELVIN SCHROEDER MD Discharge Date: 01/31/20 - Discharge Diagnosis (1) Acute blood loss anemia Is this a current diagnosis for this admission?: Yes (2) hemorrhage Is this a current diagnosis for this admission?: Yes (3) Blood transfusion during current hospitalisation Is this a current diagnosis for this admission?: Yes (4) Encounter for induction of labor Is this a current diagnosis for this admission?: Yes (5) Macrosomia Is this a current diagnosis for this admission?: Yes (6) Post term at 42 weeks gestation Is this a current diagnosis for this admission?: Yes (7) S/P primary low transverse Is this a current diagnosis for this admission?: Yes - Additional Information Resuscitation Status: Full Code Discharge Diet: Regular Discharge Activity: Balance Activity w/Rest, No Driving, No Lifting Over 10 Pounds, No Lifting/Push/Pulling, Pelvic Rest, No tub bath Referrals: DELVIN SCHROEDER MD [Primary Care Provider] - Home Medications: Ferrous Gluconate [Iron] 256 mg PO DAILY 01/26/20 Vitamin [-U Multiple Vitamin Capsule] 1 cap PO DAILY 01/26/20 HPI Gestational Age: 42.0 Reason(s) for Admission: Induction of Labor, Ceasarean Section-Primary Procedures: NST Intrapartum Procedure(s): : Low Cervical, Transverse Complication(s) Note: PPH Hospital Course 59. Maternal Morbidity (serious complications experinced by the mother associated with labor and delivery: Maternal transfusion Results Laboratory Results: WBC 12.5 10^3/uL (4.0-10.5) H 01/30/20 06:19 RBC 2.75 10^6/uL (3.72-5.28) L 01/30/20 06:19 Hgb 8.6 g/dL (12.0-15.5) L 01/30/20 06:19 Hct 24.9 % (36.0-47.0) L 01/30/20 06:19 MCV 90 fl (80-97) 01/30/20 06:19 MCH 31.3 pg (27.0-33.4) 01/30/20 06:19 MCHC 34.6 g/dL (32.0-36.0) 01/30/20 06:19 RDW 15.8 % (11.5-14.0) H 01/30/20 06:19 Plt Count 124 10^3/uL (150-450) L 01/30/20 06:19 Lymph % (Auto) 9.1 % (13-45) L 01/27/20 19:55 Wheeler % (Auto) 8.2 % (3-13) 01/27/20 19:55 Eos % (Auto) 0.2 % (0-6) 01/27/20 19:55 Baso % (Auto) 0.4 % (0-2) 01/27/20 19:55 Absolute Neuts (auto) 8.8 10^3/uL (1.7-8.2) H 01/27/20 19:55 Absolute Lymphs (auto) 1.0 10^3/uL (0.5-4.7) 01/27/20 19:55 Absolute Monos (auto) 0.9 10^3/uL (0.1-1.4) 01/27/20 19:55 Absolute Eos (auto) 0.0 10^3/uL (0.0-0.6) 01/27/20 19:55 Absolute Basos (auto) 0.0 10^3/uL (0.0-0.2) 01/27/20 19:55 Seg Neutrophils % 82.1 % (42-78) H 01/27/20 19:55 PT 14.3 SEC (11.4-15.4) 01/28/20 22:20 INR 1.09 01/28/20 22:20 APTT 35.9 SEC (23.5-35.8) H 01/28/20 22:20 Sodium 135.3 mmol/L (137-145) L 01/27/20 19:55 Potassium 4.0 mmol/L (3.6-5.0) 01/27/20 19:55 Chloride 109 mmol/L (98-107) H 01/27/20 19:55 Carbon Dioxide 22 mmol/L (22-30) 01/27/20 19:55 Anion Gap 4 (5-19) L 01/27/20 19:55 BUN 7 mg/dL (7-20) 01/27/20 19:55 Creatinine 0.57 mg/dL (0.52-1.25) 01/27/20 19:55 Est GFR ( Amer) > 60 (>60) 01/27/20 19:55 Est GFR (MDRD) Non-Af > 60 (>60) 01/27/20 19:55 Glucose 83 mg/dL (75-110) 01/27/20 19:55 Uric Acid 4.9 mg/dL (2.5-6.2) 01/27/20 19:55 Calcium 8.5 mg/dL (8.4-10.2) 01/27/20 19:55 Total Bilirubin 0.7 mg/dL (0.2-1.3) 01/27/20 19:55 Direct Bilirubin 0.2 mg/dL (0.0-0.4) 01/27/20 19:55 Neonat Total Bilirubin Not Reportable 01/27/20 19:55 Neonat Direct Bilirubin Not Reportable 01/27/20 19:55 Neonat Indirect Bili Not Reportable 01/27/20 19:55 AST 27 U/L (14-36) 01/27/20 19:55 ALT 15 U/L (<35) 01/27/20 19:55 Alkaline Phosphatase 229 U/L (38-126) H 01/27/20 19:55 Lactate Dehydrogenase 160 U/L (120-246) 01/27/20 19:55 Total Protein 5.2 g/dL (6.3-8.2) L 01/27/20 19:55 Albumin 2.7 g/dL (3.5-5.0) L 01/27/20 19:55 Urine Color YELLOW 01/26/20 21:20 Urine Appearance CLEAR 01/26/20 21:20 Urine pH 7.0 (5.0-9.0) 01/26/20 21:20 Ur Specific [place] 1.005 01/26/20 21:20 Urine Protein NEGATIVE mg/dL (NEGATIVE) 01/26/20 21:20 Urine Glucose (UA) NEGATIVE mg/dL (NEGATIVE) 01/26/20 21:20 Urine Ketones NEGATIVE mg/dL (NEGATIVE) 01/26/20 21:20 Urine Blood NEGATIVE (NEGATIVE) 01/26/20 21:20 Urine Nitrite NEGATIVE (NEGATIVE) 01/26/20 21:20 Urine Bilirubin NEGATIVE (NEGATIVE) 01/26/20 21:20 Urine Urobilinogen NEGATIVE mg/dL (<2.0) 01/26/20 21:20 Ur Leukocyte Esterase NEGATIVE (NEGATIVE) 01/26/20 21:20 Urine Ascorbic Acid NEGATIVE (NEGATIVE) 01/26/20 21:20 Urine Opiates Screen NEGATIVE 01/26/20 21:20 Urine Methadone Screen NEGATIVE 01/26/20 21:20 Ur Barbiturates Screen NEGATIVE 01/26/20 21:20 Ur Phencyclidine Scrn NEGATIVE 01/26/20 21:20 Ur Amphetamines Screen NEGATIVE 01/26/20 21:20 U Benzodiazepines Scrn NEGATIVE 01/26/20 21:20 Urine Cocaine Screen NEGATIVE 01/26/20 21:20 U Marijuana (THC) Screen NEGATIVE 01/26/20 21:20 RPR NONREACTIVE (NONREACTIVE) 01/26/20 21:21 Blood Type O POSITIVE 01/26/20 21:21 Blood Type Confirm O POSITIVE 01/26/20 21:21 Antibody Screen NEGATIVE 01/26/20 21:21 Crossmatch See Detail 01/26/20 21:21 Plan Plan of Treatment: f/u at [facility] in 4-5 days for incision check Time Spent: Less than 30 Minutes
[2020-01-31] MEDS: PRENATAL VITAMIN W DHA CAPSULE PO SCH (10:26)
[2020-01-31] MEDS: DOCUSATE SODIUM 100 MG CAPSULE PO SCH ×2 (10:26→18:14)
[2020-02-01] MEDS: IBUPROFEN 800 MG TABLET PO SCH (06:40)
[2020-02-01 07:49] VITALS: BP 147/91
[2020-02-01] MEDS: DOCUSATE SODIUM 100 MG CAPSULE PO SCH (10:14)
[2020-02-01] MEDS: PRENATAL VITAMIN W DHA CAPSULE PO SCH (10:14)
== END 2020-02-01 12:15 | disposition home or self-care (01) | DRG 787 ==
LOC: LR 01-26 20:39 → 2S 01-29 07:40
PROVIDERS: ADMIT Obstetrics & Gynecology Gynecology; ATTEND Obstetrics & Gynecology Gynecology
PROC: 10D00Z1 Extraction of Products of Conception, Low, Open Approach (ICD-10-PCS; principal; 2020-01-28)
PROC: 0W3J0ZZ Control Bleeding in Pelvic Cavity, Open Approach (ICD-10-PCS; 2020-01-28)
PROC: 30233N1 Transfusion of Nonautologous Red Blood Cells into Peripheral Vein, Percutaneous Approach (ICD-10-PCS; 2020-01-29)
DX: O48.0 Post-term pregnancy (principal); D62 Acute posthemorrhagic anemia; O72.0 Third-stage hemorrhage; Z3A.42 42 weeks gestation of pregnancy; O42.12 Full-term premature rupture of membranes, onset of labor more than 24 hours following rupture; O36.63X0 Maternal care for excessive fetal growth, third trimester, not applicable or unspecified; O69.81X0 Labor and delivery complicated by cord around neck, without compression, not applicable or unspecified; O62.1 Secondary uterine inertia; O90.2 Hematoma of obstetric wound; O99.02 Anemia complicating childbirth; Z37.0 Single live birth
CPT/HCPCS: 1967; 1968; 36415; 36430; 80053; 80307; 81005; 83615; 84550; 85025; 85027; 85610; 85730; 86592; 86850; 86900; 86901; 86920; 88307; 94799; 99140; J0131; J0690; J1756; J1885; J2210; J2270; J2300; J2405; J2540; J2550; J2590; J2795; J3010; J3490; J7060; P9016